=== PATIENT | male | born 1985 | race Caucasian/White ===

== ENCOUNTER 2019-07-17 02:29 | Emergency (ER) | payer SELFPAY ==
--- NOTE | 2019-07-17 03:04 | PDOC ---
History of Present Illness - General Chief Complaint: Pain, Acute Stated Complaint: ABDOMINAL PAIN Time Seen by Provider: 07/17/19 03:04 Past History - Past Medical History Allergies/Adverse Reactions: Allergies Allergy/AdvReac Type Severity Reaction Status Date / Time No Known Allergies Allergy Verified 07/17/19 03:07 Home Medications: Ambulatory Orders Famotidine [Pepcid] 20 mg PO BID PRN 5 Days #10 tablet 07/17/19 Medical Decision Making - Medical Decision Making 07/17/19 04:28 HPI: 33yo M no PMH presents from home s/p d/c from [facility] a few hours ago w/dx of gastritis for same sx of epigastric pain s/p eating spicy food, requesting prescription for pepcid. Epigastric nonradiating burning pain x2 days , intermittent, worse after eating spicy food, no hx similar sx. Pt went to [facility] and states he was dx with gastritis/reflux and felt better after pepcid; however, they did not prescribe him pepcid when he was discharged. Pt went home and ate spicy soup and pain returned, no pain meds tried (did not have any), so pt came here for prescription for pepcid. Denies nausea, vomiting, diarrhea, constipation, fever, chills, sweating, chest pain, difficulty breathing, blood in stool. ROS: Constitutional: Negative for chills, fever, fatigue, diaphoresis. HENT: Negative for sore throat, rhinorrhea, congestion. Eyes: Negative for visual disturbance. Respiratory: Negative for shortness of breath, cough, and wheezing. Cardiovascular: Negative for chest pain, palpitations, and leg swelling. Gastrointestinal: Positive for abdominal pain. Negative for blood in stool, constipation, diarrhea, nausea, and vomiting. Genitourinary: Negative for dysuria, flank pain, and hematuria. Musculoskeletal: Negative for myalgias, back pain, and neck pain. Skin: Negative for rash. Neurological: Negative for light-headedness, dizziness, vertigo, syncope, weakness, numbness and headaches. Psychiatric/Behavioral: Negative for behavioral problems and confusion. PE: Gen: Alert, NAD, comfortable-appearing. HEENT: PERRL, EOMI, MMM, NCAT. No conjunctival pallor. Sclera are non-icteric. CV: Regular rate and rhythm. No murmurs, rubs, or gallops. PULM: No resp distress. CTAB, no wheezes, rales, or rhonchi. ABD: soft, NT/ND, no rebound tenderness or guarding, no CVA tenderness. BACK: No TTP of c/t/l-spine. No step-offs or deformities. MSK: No bony deformities. 2+ pulses in all extremities. NEURO: AAOx3. PERRL. No gross CN deficits. Strength and sensation grossly intact throughout. EXTREMITIES: No cyanosis. No clubbing. No edema. No calf tenderness. PSYCH: Normal mood and thought pattern. SKIN: Warm and dry. Normal capillary refill. No rashes. No jaundice. MDM: 33yo M no PMH presents from home s/p d/c from [facility] a few hours ago w/dx of gastritis for same sx of epigastric pain s/p eating spicy food, requesting prescription for pepcid. -Spoke with [facility] on phone (after obtained permission from pt): arrived 07/16/19, discharged a couple hours ago on 07/17/19 with no rx after negative CTAP and RUQ US and labs and resolution of sx with pepcid and IVF Hemodynamically stable, afebrile, benign abdomen. Presentation and OSH workup consistent with gastritis. Negative US, CTAP, and basic labs from OSH today and consistency of sx with prior sx after eating spicy food make other diagnoses of low concern. Manage pain and reassess. -Pain management: Carafate, Pepcid, IVF -EKG reviewed: NSR, 71bpm, normal axis, normal intervals, no e/o acute ischemia , no priors for comparison -Pt feeling better prior to taking meds, would just like rx Will discharge home with PCP f/u (referral provided) and pepcid Rx. Return precautions given. Pt understands all discharge instructions and all questions were answered. Discharge - Discharge Information Problems reviewed: Yes Clinical Impression/Diagnosis: Epigastric pain Condition: Improved Disposition: HOME - Admission No - Additional Discharge Information Prescriptions: Famotidine [Pepcid] 20 mg PO BID PRN 5 Days #10 tablet PRN Reason: Pain - Follow up/Referral Referrals: [facility] [Provider Group] - Patient Discharge Instructions Patient Printed Discharge Instructions: DI for Gastroesophageal Reflux Disease (GERD) Additional Instructions: You have been seen in the emergency department for your pain, most likely due to GERD. We have sent Pepcid to your pharmacy - take as prescribed as needed for pain. You can also take Tylenol as needed for pain as directed on the bottle. Follow-up with your primary care doctor within 1 week. We have given you a referral to our primary care clinic. Call the clinic to set up an appointment. Return to the Emergency Department immediately with any new or worsening symptom including inability to keep down water, vomiting, blood in the stool, or fever. Print Language: HUNGARIAN - Post Discharge Activity
[2019-07-17] MEDS ORDERED: FAMOTIDINE 20 MG/50 ML IVPB 50 ML IVPB ONE (03:29)
[2019-07-17] MEDS ORDERED: SODIUM CHLORIDE 0.9% 500 ML INFUS.BAG IV ONE (03:29)
--- NOTE | 2019-07-17 03:34 | PDOC ---
Attending Attestation - Resident Resident Name: Amanda Rodriguez - ED Attending Attestation I have performed the following: I have examined & evaluated the patient, The case was reviewed & discussed with the resident, I agree w/resident's findings & plan - HPI HPI: 07/17/19 04:55 see resident hpi - Physicial Exam PE: 07/17/19 04:55 see resident exam - Medical Decision Making 07/17/19 04:55 33-year-old male seen at another facility earlier in the evening and diagnosed with gastritis now complaining of some stomach burning and requesting Pepcid after eating spicy soup when he got home. Call placed to other facility with patient's permission who did confirm a negative CT scan and ultrasound of the abdomen Patient feeling better on reevaluation in the emergency department, Carafate given Will DC with recommended outpatient follow-up
[2019-07-17] MEDS ORDERED: SUCRALFATE 1 GM/10 ML UNIT DOSE CUPS PO ONE (03:45)
[2019-07-17 03:50] VITALS: BP 118/72; PULSE 72; TEMP 98.4; BMI 24.0
[2019-07-17] MEDS ORDERED: SUCRALFATE 1 GM TABLET (FP) ONE (03:52)
--- NOTE | 2019-07-17 15:13 | EKG ---
Test Reason : Blood Pressure : / mmHG Vent. Rate : 071 BPM Atrial Rate : 071 BPM P-R Int : 152 ms QRS Dur : 098 ms QT Int : 366 ms P-R-T Axes : 074 072 066 degrees QTc Int : 397 ms NORMAL SINUS RHYTHM NORMAL ECG NO PREVIOUS ECGS AVAILABLE Confirmed by BECKIE GARCIA MD ([id number]) on 07/17/2019 3:13:43 PM Referred By: Confirmed By:BECKIE GARCIA MD
== END 2019-07-17 05:04 | disposition home or self-care (01) ==
LOC: JER 02:29
DX: K21.9 Gastro-esophageal reflux disease without esophagitis (principal); R10.13 Epigastric pain
CPT/HCPCS: 93005; 93010; 99284-25